=== PATIENT | male | born 1995 | race American Indian/Alaskan Native ===

== ENCOUNTER 2017-06-08 16:19 | Inpatient (IN) | payer MEDICAID, OTHER ==
[2017-06-08 17:11] LABS: BASO # 0.1 K/uL (0.0-0.2); BASO % 0.9 % (0.0-2.0); EOS # 0.3 K/uL (0.0-0.7); EOS % 3.7 % (0.0-4.0); HEMOGLOBIN 14.6 g/dL (12.0-18.0); LYMPH # 2.7 K/uL (1.0-4.3); LYMPH % 36.5 % (20.0-40.0); MEAN CELL VOLUME 85.8 fL (80.0-94.0); MEAN CORPUSCULAR HEMOGLOBIN 29.7 pg (27.0-31.0); MEAN CORPUSCULAR HGB CONC 34.6 g/dL (33.0-37.0); MEAN PLATELET VOLUME 7.2 fL (7.2-11.7); MONO # 0.8 K/uL (0.0-0.8); NEUT # 3.6 K/uL (1.8-7.0); NEUT % 47.9 % (50.0-75.0); RBC 4.91 Mil/uL (4.40-5.90); RED CELL DISTRIBUTION WIDTH 13.7 % (11.5-14.5); WHITE BLOOD COUNT 7.5 K/uL (4.8-10.8)
[2017-06-08 17:19] LABS: ALBUMIN 4.1 g/dL (3.5-5.0)
[2017-06-08 17:21] LABS: GFR AFRICAN-AMERICAN > 60; GFR NON-AFRICAN AMERICAN > 60
[2017-06-08 17:22] LABS: ALB/GLOB RATIO 1.3 (1.0-2.1); ALT/SGPT 28 U/L (21-72); AST/SGOT 23 U/L (17-59); BLOOD UREA NITROGEN 9 mg/dL (9-20); CALCIUM 8.7 mg/dl (8.6-10.4)
[2017-06-08 18:07] LABS: SQUAMOUS EPITHIAL < 1 /hpf (0-5); URINE BILIRUBIN NEGATIVE (NEGATIVE); URINE BLOOD NEGATIVE (NEGATIVE); URINE CLARITY Clear (Clear); URINE COLOR Yellow (YELLOW); URINE GLUCOSE (UA) NORMAL (Normal); URINE LEUKOCYTE ESTERASE NEG Leu/uL (Negative); URINE NITRATE NEGATIVE (NEGATIVE); URINE PROTEIN NEGATIVE (NEGATIVE)
[2017-06-08 18:16] LABS: BENZODIAZEPINES, UR NEGATIVE (NEGATIVE)
[2017-06-08 18:17] LABS: BARBITURATES, UR NEGATIVE (NEGATIVE)
[2017-06-08 18:20] LABS: OPIATES, UR POSITIVE (NEGATIVE); PHENCYCLIDINE, UR NEGATIVE (NEGATIVE)
--- NOTE | 2017-06-08 18:21 | C.PDOC ---
History Of Present Illness 22 yr old male presents to the ER requesting detox from heroin. Patient reports he uses 1 bundle each day, last use was this morning. Patient reports use through IV and nasal. Denies fever, chest pain, SOB, nausea, vomiting, headache , weakness or numbness. Time Seen by Provider: 06/08/17 16:35 Chief Complaint (Nursing): Substance Abuse History Per: Patient History/Exam Limitations: no limitations Onset/Duration Of Symptoms: Persistent Past Medical History Reviewed: Historical Data, Nursing Documentation, Vital Signs Vital Signs: Last Vital Signs Temp 98.3 F 06/08/17 19:20 Pulse 71 06/08/17 19:20 Resp 18 06/08/17 19:20 BP 114/76 06/08/17 19:20 Pulse Ox 99 06/08/17 19:20 - Medical History PMH: Anxiety, Bipolar Disorder, Depression Family History: States: No Known Family Hx - Social History Hx Alcohol Use: No Hx Substance Use: Yes (heroin) - Immunization History Hx Tetanus Toxoid Vaccination: Yes Hx Influenza Vaccination: Yes Hx Pneumococcal Vaccination: Yes Review Of Systems Except As Marked, All Systems Reviewed And Found Negative. Constitutional: Negative for: Fever Cardiovascular: Negative for: Chest Pain Respiratory: Negative for: Shortness of Breath Gastrointestinal: Negative for: Nausea, Vomiting Neurological: Negative for: Weakness, Numbness, Headache Physical Exam - Physical Exam Appears: Well, Non-toxic, No Acute Distress Skin: Warm, Dry, No Rash Head: Atraumatic, Normacephalic Nose: Normal Oral Mucosa: Moist Throat: Normal, No Erythema, No Exudate, No Drooling Neck: Normal, Normal ROM, Supple Chest: Symmetrical, No Tenderness Cardiovascular: Rhythm Regular, No Murmur Respiratory: Normal Breath Sounds, No Rales, No Rhonchi, No Wheezing Extremity: Normal ROM, No Swelling Neurological/Psych: Oriented x3, Normal Speech, Normal Motor ED Course And Treatment - Laboratory Results Result Diagrams: 06/08/17 17:08 06/08/17 17:08 O2 Sat by Pulse Oximetry: 99 (RA ) Pulse Ox Interpretation: Normal Medical Decision Making Medical Decision Making: PLAN: * Alcohol Serum * Drug Screen * CBC * CMP * Urinalysis * Nicotine TD Disposition - Disposition Disposition: HOSPITALIZED Disposition Time: 18:25 Condition: STABLE - Clinical Impression Clinical Impression: Drug dependence, Drug abuse - Scribe Statement The provider has reviewed the documentation as recorded by the Graceibe Jessica Barfield Provider Attestation: All medical record entries made by the Ashwin were at my direction and personally dictated by me. I have reviewed the chart and agree that the record accurately reflects my personal performance of the history, physical exam, medical decision making, and the department course for this patient. I have also personally directed, reviewed, and agree with the discharge instructions and disposition.
--- NOTE | 2017-06-08 18:53 | PCM.BM ---
<Portia Charles - Last Filed: 06/08/17 18:51> Treatment Plan Problems - Problems identified on initial assessmt potiential for opiate withdrawal Date Initiated: 06/08/17 Time Initiated: 18:52 Assessment reference: NA Status: Active ineffective coping Date Initiated: 06/08/17 Time Initiated: 18:53 Assessment reference: NA Status: Active Treatment assets and liabiliti Patient Assests: ADL independent, physically healthy Patient Liabilities: substance abuse, legal issue - Milieu Protocol Maintain good personal hygiene: daily Encourage regular showers, daily Remind patient to perform daily oral care, daily Assist patient to perform ADL's Maintain personal safety: every shift Educate patient to report safety concerns to staff, every shift Monitor environment for contraband/sharps Medication safety: Monitor for expected outcome, potential side effects: every shift, Assess barriers to learning: every shift, Assess readiness for medication education: every shift <Tracy Millan - Last Filed: 06/09/17 09:26> - Diagnosis (1) Opioid use disorder, severe, dependence Status: Acute Interventions: 06/09/17 09:25 * Assess 7x/week regarding severity of withdrawal * Educate regarding risks, benefits, side effects and alternatives of medications * Use Motivational Interviewing for abstinence * Use CBT for relapse prevention * Medication management for withdrawal symptoms * Encourage medication assisted treatment *
[2017-06-08] MEDS ORDERED: Aluminum Hydroxide/Magnesium Hydroxide Susp (30 mL) PO PRN (23:11)
[2017-06-09 11:27] VITALS: RESP 18
--- NOTE | 2017-06-09 13:02 | PCM.PSYCH ---
Initial Psychiatric Evaluation - Initial Psychiatric Evaluation Type of Admission: Voluntary Legal Status: Capacity Chief Complaint (in patient's own words): "I needed help" History of Present Illness and Precipitating Events: The patient is seen, chart reviewed and case discussed. This is a 22-year-old male, single with no child, lives with his brother and mother in [place]. He was working until recently but now he is unemployed. The patient is here for heroin detox. He uses 10-20 bags of IV heroin every day for the last 9 months. He used to take some painkillers prior to that. He also used some Suboxone from the streets. The patient also admits to using cocaine intranasally for the past 2 years. He spends about $200 a week Finally, he smokes 10 cigarettes a day and sometimes marijuana. He denies other drugs. This is his second detox and he has never been to rehabilitation or NA. He denies psych symptoms. Past psych history: He denies ever needing psych tx or galdino attempts. He had one heroin OD but it was intentional he says. Family psych history: Denies Medical history: Denies Current Medications: Active Medications Generic Name Dose Route Start Last Admin Trade Name Freq PRN Reason Stop Dose Admin Al Hydrox/Mg Hydrox/Simethicone 30 ml 06/08/17 23:11 Maalox 30 Ml PO TID PRN Indigestion / Heartburn Clonidine HCl 0.1 mg 06/08/17 23:11 Catapres PO Q8 PRN COWS Score More or Equal to 5 Gabapentin 100 mg 06/09/17 10:00 06/09/17 10:53 Neurontin PO 100 mg TID HUANG Administration Hydroxyzine HCl 50 mg 06/08/17 23:11 Atarax PO Q6H PRN Anxiety Ibuprofen 600 mg 06/08/17 23:11 Motrin Tab PO Q6H PRN Pain, moderate (4-7) Loperamide HCl 2 mg 06/08/17 23:11 Imodium PO Q8 PRN Diarrhea Nicotine 1 patch 06/09/17 19:00 Nicoderm Cq TD DAILY HUANG Nicotine 1 patch 06/09/17 10:30 06/09/17 10:53 Nicoderm Cq TD 1 patch DAILY HUANG Administration Ondansetron HCl 4 mg 06/08/17 23:11 Zofran Tab PO Q8 PRN Nausea/Vomiting Trazodone HCl 50 mg 06/08/17 21:08 Desyrel PO HS PRN insomnia Past Psychiatric History - Past Psychiatric History Previous Treatment History: None (Den) Pertinent Medical Hx (Current Medical&Sleep Prob, Allergies): Allergies Allergy/AdvReac Type Severity Reaction Status Date / Time No Known Allergies Allergy Verified 06/08/17 16:26 No Known Home Med 06/08/17 Review of Systems - Neurological Neurological: UNREMARKABLE - Psychiatric Psychiatric: Abnormal Sleep Pattern, Anxiety. absent: Hallucinations, Homicidal Ideation, Hopelessness, Paranoia, Suicidal Ideation Mental Status Examination - Personal Presentation Personal Presentation: Looks stated age - Affect Affect: Constricted - Motor Activity Motor Activity: Calm - Reliability in Providing Information Reliability in Providing Information: Good - Speech Speech: Organized - Mood Mood: Anxious - Formal Thought Process Formal Thought Process: No Impairment - Cognitive Functions Orientation: Person, Place, Situation, Time Sensorium: Alert Attention/Concentration: Attentive Estimate of Intelligence: Average Judgement: Intact, as evidence by: Insight regarding need for hospitalization Memory: Recent intact, as evidence by: Ability to recall events of the day, Remote intact, as evidenced by: Abilit to recall sig. life events - Risk Risk: Withdrawal, Diminished functioning - Strength & Assets Inventory Strength & Assets Inventory: Family support, Cooperative - Limitations Limitations: Other (unemployed) DSM 5 DX - DSM 5 DSM 5 Diagnosis: Opioid withdrawal Opioid use - severe Cocaine use d/o - severe Tobacco use d/o - moderate Cannabis use d/o - mild - Recommended/Plan of Treatment Treatment Recommendations and Plan of Treatment: Subutex detox Gabapentin for augmentation As needed meds and vitamins Attend groups and activities GA for abstinence and CBT for relapse prevention Support and psychoeducation Consider and encourage MAT Refer to after care 33 min Projected ELOS: 4 days Prognosis: Good with treatment Discharge Plan and Discharge Criteria: Rehab Criteria: No wdw sxs - Smoking Cessation Smoking Cessation Initiated: Yes
[2017-06-09] MEDS ORDERED: Buprenorphine Hydrochloride 2 mg SL ONE ×2 (14:11→15:15)
[2017-06-10 09:18] VITALS: BP 98/63; PULSE 73; TEMP 97.6; O2SAT 99
[2017-06-10] MEDS ORDERED: Buprenorphine Hydrochloride 2 mg SL SCH (10:00)
--- NOTE | 2017-06-10 11:23 | PCM.PYCHDC ---
Mental Status Examination - Mental Status Examination Orientation: Person, Place, Situation, Time Memory: Intact Mood: Anxious Affect: Constricted Speech: Appropriate Attention: WNL Concentration: Poor Association: WNL Fund of Knowledge: Poor Formal Thought Process: No Impairment Suicidal Ideation: No Current Homicidal Ideation?: No Discharge Summary - Discharge Note Reason for Hospitalization: Opioid detox Consultations:: List each consultation separately and include: 1. Reason for request. 2. Findings. 3. Follow-up Summary of Hospital Course include:: 1. Description of specific treatment plan utilized for patients during their course of treatmen. 2. Summarize the time- course for resolution of acute symptoms and/or regressed behaviors. 3. Describe issues identified and worked on during hospitalization. 4. Describe medication utilized. 5. Describe medical problems identified and treated. 6. Reassessment of suicide risk Summary of Hospital Course: On admission: The patient is seen, chart reviewed and case discussed. This is a 22-year-old male, single with no child, lives with his brother and mother in [place]. He was working until recently but now he is unemployed. The patient is here for heroin detox. He uses 10-20 bags of IV heroin every day for the last 9 months. He used to take some painkillers prior to that. He also used some Suboxone from the streets. The patient also admits to using cocaine intranasally for the past 2 years. He spends about $200 a week Finally, he smokes 10 cigarettes a day and sometimes marijuana. He denies other drugs. This is his second detox and he has never been to rehabilitation or NA. He denies psych symptoms. Past psych history: He denies ever needing psych tx or galdino attempts. He had one heroin OD but it was intentional he says. Family psych history: Denies Medical history: Denies Hospital course: The pt was admitted and started on treatment with psychotherapy, support, psychoeducation and medications. ND used briefly The pt decided to leave AMA almost immediately the first morning. All the risks and benefits of medications discussed and he understood AND same with leaving AMA, incl. OD and discussed but he still left. He may be violating his probation too, but again he said he doesn't care b/c he felt too cooped up here. He refused all help. - Final Diagnosis (DSM 5) Condition upon Discharge: FAIR DSM 5: Opioid withdrawal Opioid use d/o - severe Disposition: AGAINST MEDICAL ADVICE Follow-up Treatment Plan: Use relapse prevention skills. Return to ER or call 911 if suicidal, homicidal or symptoms relapse. Stay away from stress, alcohol and drugs. Use relaxation techniques. See primary doctor once a year and get labs. Consider MAT - Smoking Cessation Smoking Cessation Medication prescribed: No - Antipsychotic Medications Pt discharged on 2 or more routine antipsychotic medications: No
== END 2017-06-10 11:30 | disposition left against medical advice (07) | DRG 743 ==
LOC: C.ER 16:19 → C.7D 18:34
PROVIDERS: ADMIT Psychiatry & Neurology Psychiatry; ATTEND Psychiatry & Neurology Psychiatry
PROC: HZ2ZZZZ Detoxification Services for Substance Abuse Treatment (ICD-10-PCS; principal; 2017-06-08)
DX: F11.23 Opioid dependence with withdrawal (principal); F31.9 Bipolar disorder, unspecified; F17.210 Nicotine dependence, cigarettes, uncomplicated; F12.90 Cannabis use, unspecified, uncomplicated; F14.90 Cocaine use, unspecified, uncomplicated